=== PATIENT | male | born 1970 | race Caucasian/White ===

== ENCOUNTER 2023-08-15 18:10 | Observation (INO) ==
[2023-08-15] MEDS: DIAZEPAM 10 MG/2 ML SYRINGE IV ONE (19:10)
[2023-08-15] MEDS: GLUCAGON,HUMAN RECOMBINANT 1 MG VIAL IV ONE (19:10)
[2023-08-15] MEDS: NITROGLYCERIN 0.4 MG TAB.SUBL SL ONE (19:37)
[2023-08-15] MEDS ORDERED: METHOCARBAMOL 1,000 MG/10 ML VIAL IV PRN (20:30)
[2023-08-15] MEDS ORDERED: METOCLOPRAMIDE 10 MG/2 ML VIAL IV SCH (20:30)
[2023-08-15 20:37] LABS: Basophils # (Auto) 0.03 K/mcL (0.00-0.30); Basophils % (Auto) 0.2 % (0.0-2.0); Eosinophils # (Auto) 0.13 K/mcL (0.00-0.70); Eosinophils % (Auto) 0.8 % (0.0-7.0); Hematocrit 47.7 % (40.1-51.0); Hemoglobin 15.8 g/dL (13.7-17.5); Lymphocytes # (Auto) 2.22 K/mcL (1.50-4.80); Lymphocytes % (Auto) 13.4 % (15.5-49.0); Mean Cell Volume 88.5 fL (80.0-100.0); Mean Corpuscular HGB Conc 33.1 g/dL (31.0-36.0); Monocytes # (Auto) 1.03 K/mcL (0.10-0.90); Monocytes % (Auto) 6.2 % (1.0-12.0); Neutrophils % (Auto) 79.2 % (38.0-78.0); Platelet Count 237 K/mcL (140-440); RBC 5.39 M/mcL (4.63-6.08); Red Cell Distribution Width 13.4 % (11.5-14.5); WBC 16.6 K/mcL (4.5-11.0)
[2023-08-15] MEDS ORDERED: METHOCARBAMOL 1,000 MG/10 ML VIAL IV SCH (20:45)
[2023-08-15 21:12] LABS: ALT/SGPT 29 U/L (<40); AST/SGOT 25 U/L (<40); Albumin 4.4 gm/dL (3.2-5.2); Albumin/Globulin Ratio 1.4 (1.0-2.3); Alkaline Phosphatase 115 U/L (39-117); Bilirubin,Total 0.5 mg/dL (0.1-1.0); Blood Urea Nitrogen 12 mg/dL (6-20); Calcium 9.3 mg/dL (8.6-10.4); Carbon Dioxide 22 mmol/L (22-30); Chloride 102 mmol/L (96-108); Globulin 3.1 gm/dL (2.2-3.7); Glomerular Filtration Rate 103; Glucose 154 mg/dL (70-105)
[2023-08-15] MEDS: GLUCAGON,HUMAN RECOMBINANT 1 MG VIAL IV SCH ×2 (22:32)
[2023-08-15] MEDS: 0.9 % SODIUM CHLORIDE 1,000 ML IV SCH ×2 (22:32→22:55)
[2023-08-16] MEDS: METOCLOPRAMIDE 10 MG/2 ML VIAL IV SCH (00:25)
[2023-08-16 06:35] LABS: Basophils # (Auto) 0.03 K/mcL (0.00-0.30); Basophils % (Auto) 0.2 % (0.0-2.0); Eosinophils % (Auto) 0.7 % (0.0-7.0); Hematocrit 45.8 % (40.1-51.0); Hemoglobin 15.3 g/dL (13.7-17.5); Lymphocytes # (Auto) 1.95 K/mcL (1.50-4.80); Lymphocytes % (Auto) 14.1 % (15.5-49.0); Mean Cell Volume 87.1 fL (80.0-100.0); Mean Corpuscular HGB Conc 33.4 g/dL (31.0-36.0); Mean Platelet Volume 11.1 fL (8.8-12.5); Monocytes # (Auto) 0.55 K/mcL (0.10-0.90); Neutrophils % (Auto) 80.9 % (38.0-78.0); Platelet Count 237 K/mcL (140-440); RBC 5.26 M/mcL (4.63-6.08); Red Cell Distribution Width 13.6 % (11.5-14.5); WBC 13.8 K/mcL (4.5-11.0)
[2023-08-16 07:07] LABS: ALT/SGPT 33 U/L (<40); AST/SGOT 23 U/L (<40); Albumin 4.3 gm/dL (3.2-5.2); Albumin/Globulin Ratio 1.7 (1.0-2.3); Alkaline Phosphatase 106 U/L (39-117); Bilirubin,Direct 0.2 mg/dL (<0.3); Bilirubin,Total 0.7 mg/dL (0.1-1.0); Blood Urea Nitrogen 14 mg/dL (6-20); Calcium 8.9 mg/dL (8.6-10.4); Carbon Dioxide 22 mmol/L (22-30); Chloride 104 mmol/L (96-108); Globulin 2.6 gm/dL (2.2-3.7); Glomerular Filtration Rate 109; Glucose 145 mg/dL (70-105); Lactate Dehydrogenase 192 U/L (135-225); Phosphorous 2.5 mg/dL (2.5-4.5); Triglycerides 236 mg/dL (<150); Uric Acid 6.3 mg/dL (2.5-8.0)
[2023-08-16] MEDS ORDERED: fentaNYL 100 MCG/2 ML VIAL ONE (11:39)
[2023-08-16] MEDS ORDERED: LIDOCAINE 2% PF 5 ML VIAL ONE (11:41)
[2023-08-16] MEDS ORDERED: KETAMINE 50 MG/ML Syringe IV ONE (11:41)
[2023-08-16] MEDS ORDERED: PROPOFOL 200 MG/20 ML VIAL IV ONE (11:41)
[2023-08-16] MEDS ORDERED: ROCURONIUM 10 MG/ML ML IV ONE (11:41)
[2023-08-16] MEDS ORDERED: SUGAMMADEX SODIUM 200 MG/2 ML VIAL IV ONE ×2 (12:06→12:10)
[2023-08-16] MEDS: SUCRALFATE 1 GM/10 ML ORAL.SUSP PO SCH (12:47)
[2023-08-16] MEDS: PANTOPRAZOLE 40 MG VIAL IV SCH (17:16)
[2023-08-17] MEDS: LISINOPRIL 10 MG TABLET PO SCH (08:32)
== END 2023-08-17 14:15 | disposition home or self-care (01) ==
LOC: ED 18:10 → MEDSUR 18:10
PROVIDERS: ADMIT Family Medicine Adult Medicine; ATTEND Family Medicine Adult Medicine